=== PATIENT | female | born 1965 | race Caucasian/White ===

== ENCOUNTER 2017-05-09 06:43 | Day surgery (SDC) | payer BC, SELFPAY ==
--- NOTE | 2017-05-09 | IMM_PTH ---
PATIENT: KAYLEN MOSES LOC: [facility] [place] U#:[id number] AGE/SX: 51/F ROOM: RE05/09/[address]: Dr. Mary Singh MD : 1965 BED: DIS: 05/09/2017 SPEC #: [id number] RECD: 05/13/17 13:06 STATUS: REECE YENI #: [id number] AYUSH: 05/09/17 00:[address]: Mary Singh DEPT: IMMUNOHISTOCHEMISTRY RECD BY: Deb Chowdhury ENTERED: 05/13/17 13:06 SP TYPE: IMMUNO OTHR DR: Yaneth Reddy, BUSINESS CENTER REPRESENTATIVE-C Tissues: A - Uterine cervix, NOS Procedures: p16 (initial) KI-67 (add) PHYSICIAN & INSTITUTION [place] [address] SPECIMEN INFORMATION: Tissue Source: A ? Cervix from [facility] Clinical Info: Cervical intraepithelial neoplasia II Specimen Number: [id number] A1 CPT code: 15173, 88807 METHODOLOGY: Deparaffinized sections of prefer/formalin-fixed tissue or PAP/DQ stained slides are incubated with monoclonal/polyclonal antibodies/oligonucleotide probes. Localization is made via biotin free immunoperoxidase method. Appropriate controls are performed and reacted as expected. Results on target cell population are indicated in the following table: RESULTS: ANTIBODY / CLONE RESULT Block A1 P16 (E6H4) positive, focal block staining Ki-67 (30-9) positive These tests were developed and their performance characteristics determined by [facility]. They may not have been cleared or approved by the U.S. Food and Drug Administration. The FDA has determined that such clearance or approval is not necessary. INTERPRETATION: A. Cervix, LEEP conization: Focal mild and moderate squamous dysplasia. ARIADNA:romy 05/14/17
--- NOTE | 2017-05-09 | CER_PTH ---
PATIENT: KAYLEN MOSES LOC: [facility] [place] U#:[id number] AGE/SX: 51/F ROOM: RE05/09/[address]: Dr. Mary Singh MD : 1965 BED: DIS: 05/09/2017 SPEC #: [id number] RECD: 05/10/17 11:09 STATUS: REECE YENI #: [id number] AYUSH: 05/09/17 00:[address]: Mary Singh DEPT: SURGICAL PATHOLOGY RECD BY: Ihsan Kwong ENTERED: 05/10/17 11:11 SP TYPE: CERV OTHR DR: Yaneth Reddy, DWAYNE Tissues: A - Uterine cervix, NOS B - Endocervical Procedures: Surgery Specimen Level IV Surgery Specimen Level V HEADER OPERATION: LEEP conization PRE-OP DIAGNOSIS: Cervical intraepithelial neoplasia II TISSUE SUBMITTED: A ? Cervix from LEEP, B ? Endocervical curettings MICROSCOPIC DIAGNOSIS A. Cervix, LEEP conization: Focal mild and moderate squamous dysplasia with HPV changes (HGSIL and EVELIN I-II). Resection margins are free of dysplastic changes. See comment. B. Endocervical curettings: Scant minute fragments of ecto- and endocervical epithelium with cautery artifacts, negative for dysplasia. SJ:rg 05/13/17 COMMENT A. The specimen entirely consists of ectocervical mucosa. Immunohistochemistry (DC13-106) for surrogate HPV marker (p16) supports the above diagnosis. This case has been reviewed in consultation with Dr. Rodriguez who concurs with the above diagnosis. MICROSCOPIC DESCRIPTION Slides are reviewed. GROSS DESCRIPTION A - Received in fixative is one container labeled with the patient's name and designated cervix from [facility]. The specimen consists of two pieces of guillen, indurated tissue measuring 2 x 0.8 x 0.5 cm and 1.8 x 0.6 x 0.3 cm. No mucosal lesion is identified. The nonmucosal surface is inked black. Also present in the container are a few minute fragments of guillen-pink soft tissue. The specimen is serially sectioned and submitted entirely in four cassettes as follows: 1 & 2 ? largest piece, 3 ? smaller piece, 4 ? detached fragments of soft tissue. B - Received in fixative is one container labeled with the patient's name and designated endocervical curettings. The specimen consists of a scant fragment of guillen mucoid tissue measuring 0.5 x 0.1 x 0.1 cm. The specimen is totally submitted in one cassette. / SJ:romy 05/10/17 TC:5 CPT: 14475, 93256
--- NOTE | 2017-05-09 05:21 | HP.PCM_ITS ---
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 Comment: recommend LEEP History and Physical Date of Admission: 05/09/17 Intake Vital Signs 3 03/20/17 Height 5 ft 5 in 03/20/17 Weight: 170 lb 03/20/17 Body Mass Index (BMI) 28.3 03/20/17 Blood Pressure 138/90 Intake Visit Reasons: LEEP PROCEDURE Chief Complaint: consult Food Safety Auditor Required: No Is patient in pain?: Yes Allergies No Known Allergies Allergy (Unverified 03/20/17 09:57) Medications bupropion HCl SR 150 mg tablet,12 hr sustained-release 150 mg PO BID 03/20/17 [ History Confirmed 03/20/17] levothyroxine 100 mcg capsule PO 03/20/17 [History Confirmed 03/20/17] levothyroxine 112 mcg capsule PO 03/20/17 [History Confirmed 03/20/17] lorazepam 0.5 mg tablet 0.5 mg BUCCAL QD-BID PRN 03/20/17 [History Confirmed ] Patient : No : [facility] History EVELIN II (cervical intraepithelial neoplasia II) (Chronic) Dysplasia of cervix, high grade EVELIN 2 (Acute) Anxiety (Chronic) High blood pressure (Chronic) Hypothyroidism (Chronic) History of broken nose (Resolved) Family History Grandmother Heart disease Social History Smoking Status: Never smoker alcohol intake: current substance use type: does not use what type of physical activity do you participate in: walking frequency: daily seatbelt use: always do you feel safe at home: Yes Pregancy History 2 5 Elective abortions 1 Hx Para 2 Spontaneous abortions 2 Hx # Term Pregnancies Ectopic pregnancies Hx # Pregnancies Multiple births # of living children Past Pregnancies Del. Date Name GA/Weeks Outcome Route Bth Weight Infant Gen Labor Lgth Anesthesia Del Locatn Provider FOB Unknown 1999 Luke Unknown 1986 [facility] HPI LEEP PROCEDURE: Details: KAYLEN ELMORE is a 51 year old who presents for abnromal lgsil pap and EVELIN 2 on colposcopy from previous provider. [facility] lives [facility] here now. she hasn't had any severely abnormal paps before. she denies any irregular bleeding or symptoms. ROS Const Constitutional: Reports system reviewed and no additional complaints, except as docu GI GI: Reports system reviewed and no additional complaints, except as docu : Reports system reviewed and no additional complaints, except as docu Exam Const General: healthy appearing, comfortable, cooperative HEENT: no thyromegaly lymphadenopathy CV:: RRR Pulmonary: CTAB Abdn: soft NTTP Skin General: no rashes or lesions noted Assessment & Plan Problems 1. EVELIN II (cervical intraepithelial neoplasia II) N87.1 recommend LEEP Plan discussed hpv education and abnormalities- recommend LEEP procedure and if negative margins, repeat pap in 1 year.
[2017-05-09 07:00] VITALS: BP 138/93; PULSE 76; RESP 16; TEMP 36; O2SAT 99; BMI 28.5
--- NOTE | 2017-05-09 07:11 | PCM.OPRPT ---
Problem List 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 Comment: recommend LEEP Report of Operation Date of Procedure: 05/09/17 Pre-Operative Diagnosis: EVELIN II Post-Operative Diagnosis: Same Surgery/Procedure Performed:: LEEP Description of Surgical Findings:: Normal-appearing cervix Type of Anesthesia:: Local MAC Specimen's removed: Cervix and endocervical curettings Estimated Blood Loss (mL): Minimal Fluids Replaced: crystalloid Description of Procedure: Patient was taken to the operating room and placed under MAC anesthesia prepped and draped in normal sterile fashion the dorsal lithotomy position. Paracervical block was placed with 1% lidocaine and using a loop electrode the outer part of the cervix was removed including the squamocolumnar junction. Endocervical curettings were taken and the base of the cervix was cauterized around the borders and the base to obtain excellent hemostasis. Monsel's paste was placed and patient was awoken and taken recovery in stable condition. Grafts/Implants Used: none - Complications none - Admit VTE Documentation VTE Present on Admission: No VTE Mechan Device Prophylaxis: SCD's
[2017-05-09] MEDS: FERRIC SUBSULFATE 8 GM SOLN (08:50)
--- NOTE | 2017-05-09 08:56 | PCM.DC.LEE ---
Allergies/Adverse Reactions: Allergies No Known Allergies Allergy (Verified 05/02/17 13:18) Medications to take at Discharge levothyroxine 112 mcg capsule 112 mcg PO DAILY 03/20/17 Trazodone HCl [Desyrel] 50 mg PO QHS 05/02/17 Primary Care Physician: Yaneth Reddy [Primary Care Provider] - Please Follow Up With: Mary Singh MD - [phone]
[2017-05-09 09:00] VITALS: BP 130/90; BP 138/93; PULSE 54; RESP 16; TEMP 36.3; O2SAT 100
[2017-05-09 09:05] VITALS: BP 138/93; BP 155/97; PULSE 61; RESP 14; O2SAT 100
[2017-05-09 09:10] VITALS: BP 138/93; BP 153/94; PULSE 62; RESP 12; O2SAT 100
[2017-05-09 09:15] VITALS: BP 138/93; BP 158/86; PULSE 67; RESP 16; TEMP 36.6; O2SAT 100
[2017-05-09 10:29] VITALS: BP 138/93
== END 2017-05-09 10:31 | disposition home or self-care (01) ==
LOC: SDC 06:46 → AC 06:47
PROVIDERS: Family Provider Nurse Practitioner; PCP Nurse Practitioner; Visit Provider Obstetrics & Gynecology
PROC: 0UBC7ZZ Excision of Cervix, Via Natural or Artificial Opening (ICD-10-PCS; CPT 57522; principal; 2017-05-09 08:05)
DX: R87.613 High grade squamous intraepithelial lesion on cytologic smear of cervix (HGSIL) (principal); E03.9 Hypothyroidism, unspecified; Z79.899 Other long term (current) drug therapy
CPT/HCPCS: 00940; 57460; 58110; 88305; 88307; 88341; 88342; J7120; J2405

== ENCOUNTER → 2017-05-21 12:12 | Outpatient (CLI) | payer BC, SELFPAY ==
--- NOTE | 2017-05-21 12:15 | HPBD_ITS ---
STUDY: DUAL ENERGY X-RAY ABSORPTIOMETRY / DXA REASON FOR EXAM: Female, 51 years old. Early menopause. No loss of height. TECHNIQUE: Bone Mineral Density (BMD) measurements of lumbar spine and bilateral hips were obtained. COMPARISON: None. FINDINGS: Lumbar Spine (L1-L4): g/cm2 (1.161) / T-score (-0.2) / Z-score (0.5) Findings are suggestive of normal bone density with a low fracture risk. Left Femur Total: g/cm2 (1.139) / T-score (1.0) / Z-score (1.6) Left Femoral Neck: g/cm2 (1.100) / T-score (0.4) / Z-score (1.) Right Femur Total: g/cm2 (1.116) / T-score (0.9) / Z-score (1.4) Right Femoral Neck: g/cm2 (1.031) / T-score (-0.1) / Z-score (0.9) HPBD/Dexa Bone Density Study (HP) IMPRESSION: The patient is considered normal as outlined below according to World Matt Organization (WHO) criteria with a low fracture risk. Reference Information: The T-score is the number of standard deviations above or below the standard which is normal for young adults at their peak bone mineral density. The World Health Organization (WHO) interprets the T-scores as follows: Above -1 Normal bone density Between -1 and -2.5 Osteopenia Equal to / or below -2.5 Osteoporosis As a practical clinical guideline, osteopenia may be graded as follows: Mild -1 through -1.5 Moderate -1.6 through -2.0 Severe -2.1 through -2.4 The Z-score is the number of standard deviations above or below age-matched controls. A Z-score of less than -1.5 would be considered abnormal. References: 1. NIH Osteoporosis and Related Bone Diseases http://www.osteo.org 2. International Society for Clinical Densitometry http://www.iscd.org 3. National Osteoporosis Foundation http://www.nof.org Electronically Signed: Benny Hussein MD at 15:41 EST Tel [phone], Service support ,
== END ==
PROVIDERS: Family Provider Nurse Practitioner; PCP Nurse Practitioner; Visit Provider Nurse Practitioner
DX: Z78.0 Asymptomatic menopausal state (principal)
CPT/HCPCS: 77080

== ENCOUNTER → 2018-08-14 07:58 | Outpatient (CLI) | payer BC, SELFPAY ==
[2018-07-23 16:00] VITALS: BMI 28.5
--- NOTE | 2018-08-14 08:02 | US_ITS ---
STUDY: ABDOMINAL ULTRASOUND - RIGHT UPPER QUADRANT REASON FOR VISIT: Female, 52 years old. Elevated liver function tests. TECHNIQUE: Ultrasound evaluation of the right upper quadrant was performed with real-time and static nunez-scale imaging. TECHNICAL QUALITY: Adequate. COMPARISON: None. FINDINGS: Liver: The liver measures 13.7 cm. There is increased echogenicity consistent with fatty infiltration. The bile ducts are within normal limits. There is hepatic color flow. The direction of portal flow is hepatopetal. There is no demonstrated mass lesion. Gallbladder: Normal distended gallbladder. The gallbladder wall measures 3 mm. There is a negative sonographic 's sign. There is no pericholecystic fluid. There are no gallstones. Common Bile Duct (C.B.D.): The common bile duct measures 4 mm. Pancreas: Normal size of the head, body and tail of the pancreas. There is normal echogenicity of the pancreas. There is no demonstrated pancreatic mass or cyst. Right Kidney: Normal size of the right kidney. The right kidney measures 11.5 cm. Normal renal cortex. The right cortex measures 1.2 cm. There is no demonstrated renal mass or cyst. Probable 5 mm nonobstructing stone. There is no right hydronephrosis. US/Abdomen Limited IMPRESSION: No acute abnormality. Electronically Signed: Conrad Steve MD at 16:57 EDT , Service support ,
== END ==
PROVIDERS: Family Provider Nurse Practitioner; PCP Nurse Practitioner; Referring Provider Nurse Practitioner; Visit Provider Nurse Practitioner
DX: R74.8 Abnormal levels of other serum enzymes (principal)
CPT/HCPCS: 76705

== ENCOUNTER → 2018-08-21 08:12 | Outpatient (CLI) | payer BC, SELFPAY ==
[2018-07-23 16:00] VITALS: BMI 28.5
--- NOTE | 2018-08-21 08:14 | BI_ITS ---
MAMMOGRAPHY - BILATERAL SCREENING REASON FOR EXAM: Female, 52 years old. Routine annual screening examination. PERTINENT HISTORY: Non-contributory. TECHNIQUE: Digital bilateral breast allison (3D mammographic acquisition) in the CC and MLO projections. 2-D mediolateral oblique (MLO) and craniocaudad (CC) views of both breasts were obtained. CAD: Full Field Digital Mammography with Computer Added Detection was performed. COMPARISON: Comparison is made with prior examination dated December 18, 2016. FINDINGS: Breast Composition: There are scattered areas of fibroglandular density. There are no dominant masses or suspicious calcifications. Stable benign-appearing bilateral axillary lymph nodes. No other significant abnormalities are identified. There has been no significant change since the prior study. BI/SCREENING MAMM (CAD), BILAT IMPRESSION: Stable bilateral screening mammogram. Yearly follow-up mammogram recommended. (A) ASSESSMENT CATEGORY: BIRADS Category 2: Benign. A letter regarding these results will be sent to the patient by the facility within 30 days. Approximately 10% of breast cancers are not detected by mammography. A normal mammogram should not delay biopsy of a clinically suspicious abnormality. [id number] Electronically Signed: Benny Hussein, at 11:17 EDT , Service support ,
== END ==
PROVIDERS: Family Provider Nurse Practitioner; PCP Nurse Practitioner; Referring Provider Nurse Practitioner; Visit Provider Nurse Practitioner
DX: Z12.31 Encounter for screening mammogram for malignant neoplasm of breast (principal)
CPT/HCPCS: 77063; 77067

== ENCOUNTER 2018-09-08 19:23 | Emergency (ER) | payer BC, SELFPAY ==
[2018-07-23 16:00] VITALS: BMI 28.5
[2018-09-08 19:24] VITALS: BP 153/110; PULSE 78; RESP 17; TEMP 37.3; O2SAT 98; BMI 29.2
--- NOTE | 2018-09-08 19:50 | CT_ITS ---
STUDY: CT ABDOMEN AND PELVIS WITHOUT CONTRAST REASON FOR EXAM: Female, 53 years old. Flank pain with nausea and vomiting RADIATION DOSAGE (If Supplied By Facility): CTDIvol = ( 14.60 ) mGy, DLP = ( 729.47 ) mGycm TECHNIQUE: Transaxial images were obtained from the dome of the diaphragm to the symphysis pubis without oral contrast, and without intravenous contrast. Sagittal and coronal images were reconstructed. Individualized dose optimization techniques were used for this CT. COMPARISON: None. FINDINGS: The visualized lung bases are unremarkable. The visualized portions of the heart are within normal limits. Small hiatal hernia is present. Liver is fatty infiltrated without mass or bile duct dilatation. Normal gallbladder and extrahepatic biliary system. Normal spleen. Normal pancreas. Normal bilateral adrenal glands. Normal right kidney. Mild left hydroureteronephrosis secondary to tiny ureteral calculus at the ureterovesical junction measuring approximately 3.6 mm Normal visualized stomach. Normal small intestine. Minor diverticular changes of colon without evidence for acute diverticulitis The appendix is visualized and appears normal. Normal abdominal aorta. Normal inferior vena cava. Normal retroperitoneum. Incompletely distended thick-walled bladder of uncertain significance although may be consistent with cystitis Normal abdominal wall. Normal osseous structures. CT/Abdomen/Pelvis without Cont IMPRESSION: Mild left hydroureteronephrosis secondary to tiny distal ureteral calculus at the ureterovesical junction. Incompletely distended thick-walled bladder which may be consistent with cystitis Electronically Signed: Joce Delatorre MD at 20:53 EDT , Service support ,
[2018-09-08] MEDS: Ondansetron 4 MG/2 ML Vial IV (19:54)
[2018-09-08] MEDS: Ketorolac 30 MG/ML Syringe 15 MG IV (19:54)
[2018-09-08 20:24] VITALS: RESP 17
[2018-09-08 20:26] LABS: Bacteria 0 SEEN /hpf (None Seen)
[2018-09-08 20:31] LABS: Anion Gap 10 (5-15); BUN 12 mg/dL (7-18); BUN/Creat Ratio 11.8 RATIO (10-20); Calcium,Total 8.8 mg/dL (8.5-10.1); Chloride 104 mmol/L (98-107); Creatinine, Serum 1.02 mg/dL (0.55-1.02); EST Glomerular Filtration Rate 60 mL/min (>60); Est Glom Filt Rate - Afr Amer 73 mL/min (>60); Estimated Creatinine Clearance 54.45 ml/min; Glucose 94 mg/dL (74-106); Potassium 3.2 mmol/L (3.5-5.1); Sodium Level 141 mmol/L (136-145)
[2018-09-08 20:35] LABS: Color, Urine Yellow (Yellow); Glucose, Dipstick Normal (Normal); Ketone-Dipstick 5 mg/dl (Negative); Leukocyte Esterase-Dipstick 25 /ul (Negative); Nitrite-Dipstick Negative (Negative); Occult Blood-Urine 250 /ul (Negative); Protein-Dipstick 30 mg/dl (Negative); Specific Gravity, Urine 1.015 (1.002-1.030); Urine Bilirubin Dipstick Negative (Negative); Urine Clarity Cloudy (Clear); Urine Urobilinogen 1 mg/dl (Normal); Urine pH 6.5 (5.0 - 8.0)
[2018-09-08] MEDS: Morphine 4 MG/ML Syringe IV (20:36)
[2018-09-08 20:51] LABS: Mucous, Urine RARE /hpf (<or=2+); Squamous Epithelial Cells - UA 0-5 SEEN /hpf (5-10); White Blood Cells 0-5 SEEN /hpf (0-5)
[2018-09-08 20:52] LABS: Red Blood Cells-Urine 25-50 SEEN /hpf (0-5)
[2018-09-08] MEDS: Ketorolac 15 MG/ML Vial IV (21:07)
--- NOTE | 2018-09-08 21:19 | ED.VIS.GI ---
History of Present Illness Chief Complaint: Flank Pain Narrative: Patient presenting for evaluation secondary to flank pain. Patient reports that she had a sudden onset about an hour or so ago of left-sided flank pain that radiates down into her groin. This is sharp without any exacerbating or relieving factors. It has been associated with feelings of urinary frequency and urgency. She denies any fevers nausea vomiting diarrhea associated with it. She is never had any prior similar episodes in the past, denies any history of kidney stones. 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 Review of systems otherwise negative. Past Medical History - Allergies and Home Meds Allergies/Adverse Reactions: Allergies No Known Allergies Allergy (Verified 09/08/18 19:24) Primary Care Physician: Yaneth Reddy NP-C [Primary Care Provider] - Smoking Status: Never smoker Review of Systems All systems negative except as indicated General: Denies: Chills, Fever Gastrointestinal: Reports: - - Flank pain Genitourinary: Reports: Frequency Physical Exam Vital Signs/Narrative: Vital Signs Temp Pulse Resp BP Pulse Ox 09/08/18 20:24 17 09/08/18 19:24 99.1 F 78 17 153/110 H 98 General: - - Well-nourished well-developed female visibly in pain but not toxic or in acute distress Head: Normocephalic, Atraumatic Eyes: Perrl, EOMI ENT: Moist mucous membranes, No rhinorrhea Neck: Supple, Nontender Cardiovascular: Regular rate, Regular rhythm, No murmurs Respiratory: No distress, CTA bilaterally, Chest nontender Abdomen: Soft, Nontender, Nondistended, Normal bowel sounds, - - Minimal left-sided flank tenderness to percussion Back: CVA tenderness Extremities: Nontender, No edema, - - 2+ PT pulses bilaterally symmetric Skin: Normal color, No rash Neurological: Alert, Oriented x3, Cranial nerves II-XII grossly intact, Normal Strength, Normal Sensation Psychological: Normal affect, Normal Mood Diagnostic/Tx/Re-eval - Medical Decision Making Patient presented for evaluation secondary to flank pain. IV was established patient was given morphine Toradol and Zofran as well as fluids. Patient's metabolic panel shows very mild hypokalemia, nothing that will require replacement at this point. Patient's urinalysis shows blood no infection. CT abdomen and pelvis shows a very small stone at the patient's left UVJ with associated hydronephrosis. Patient initially had some improvement in her pain, then had reemergence of her pain was given an additional dose of Toradol. At this point I believe she is appropriate for discharge. She will be sent home with a course of Percocet for pain control, and follow-up with urology. She understands signs and symptoms worse return. ED Disposition - Plan for ED Patient: Disposition: Home or Assisted Living Diagnosis: Urolithiasis Instructions: ED Stone Renal W Colic Prescriptions: Oxycodone HCl/Acetaminophen [Percocet 5/325] 1 tab PO Q6H PRN PRN 3 Days #12 tab PRN Reason: Pain Referrals: Madelyn Olivarez MD [STAFF PHYSICIAN] - 3-5 Days
--- NOTE | 2018-09-08 21:23 | ED.DCSUM_ITS ---
History of Present Illness Chief Complaint: Flank Pain Narrative: Patient presenting for evaluation secondary to flank pain. Patient reports that she had a sudden onset about an hour or so ago of left-sided flank pain that radiates down into her groin. This is sharp without any exacerbating or relieving factors. It has been associated with feelings of urinary frequency and urgency. She denies any fevers nausea vomiting diarrhea associated with it. She is never had any prior similar episodes in the past, denies any history of kidney stones. 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 Review of systems otherwise negative. Past Medical History - Allergies and Home Meds Allergies/Adverse Reactions: Allergies No Known Allergies Allergy (Verified 09/08/18 19:24) Primary Care Physician: Yaneth Reddy NP-C [Primary Care Provider] - Smoking Status: Never smoker Review of Systems All systems negative except as indicated General: Denies: Chills, Fever Gastrointestinal: Reports: - - Flank pain Genitourinary: Reports: Frequency Physical Exam Vital Signs/Narrative: Vital Signs Temp Pulse Resp BP Pulse Ox 09/08/18 20:24 17 09/08/18 19:24 99.1 F 78 17 153/110 H 98 General: - - Well-nourished well-developed female visibly in pain but not toxic or in acute distress Head: Normocephalic, Atraumatic Eyes: Perrl, EOMI ENT: Moist mucous membranes, No rhinorrhea Neck: Supple, Nontender Cardiovascular: Regular rate, Regular rhythm, No murmurs Respiratory: No distress, CTA bilaterally, Chest nontender Abdomen: Soft, Nontender, Nondistended, Normal bowel sounds, - - Minimal left- sided flank tenderness to percussion Back: CVA tenderness Extremities: Nontender, No edema, - - 2+ PT pulses bilaterally symmetric Skin: Normal color, No rash Neurological: Alert, Oriented x3, Cranial nerves II-XII grossly intact, Normal Strength, Normal Sensation Psychological: Normal affect, Normal Mood Diagnostic/Tx/Re-eval - Medical Decision Making Patient presented for evaluation secondary to flank pain. IV was established patient was given morphine Toradol and Zofran as well as fluids. Patient's metabolic panel shows very mild hypokalemia, nothing that will require replacement at this point. Patient's urinalysis shows blood no infection. CT abdomen and pelvis shows a very small stone at the patient's left UVJ with associated hydronephrosis. Patient initially had some improvement in her pain, then had reemergence of her pain was given an additional dose of Toradol. At this point I believe she is appropriate for discharge. She will be sent home with a course of Percocet for pain control, and follow-up with urology. She understands signs and symptoms worse return. ED Disposition - Plan for ED Patient: Disposition: Home or Assisted Living Diagnosis: Urolithiasis Instructions: ED Stone Renal W Colic Prescriptions: Oxycodone HCl/Acetaminophen [Percocet 5/325] 1 tab PO Q6H PRN PRN 3 Days #12 tab PRN Reason: Pain Referrals: Madelyn Olivarez MD [STAFF PHYSICIAN] - 3-5 Days
[2018-09-08 21:29] VITALS: BP 132/71; PULSE 84; RESP 18; O2SAT 99
== END 2018-09-08 21:30 | disposition home or self-care (01) ==
PROVIDERS: Emergency Provider Emergency Medicine; Family Provider Nurse Practitioner; PCP Nurse Practitioner
DX: N13.2 Hydronephrosis with renal and ureteral calculous obstruction (principal); E87.6 Hypokalemia; Z79.899 Other long term (current) drug therapy
CPT/HCPCS: 74176; 80048; 81001; 96374; 96375; 96376; 99283; J7030; A4216; J2405

== ENCOUNTER → 2018-09-25 08:44 | Outpatient (CLI) | payer BC, SELFPAY ==
[2018-09-25 08:20] VITALS: BMI 29.2
[2018-09-25 10:22] LABS: HIV - WCH Non-Reactive (Nonreactive)
[2018-09-26 02:32] LABS: Rapid Plasmin Reagin (RPR) NONREACTIVE (NONREACTIVE)
[2018-09-27 03:06] LABS: HCV Quant. RNA PCR HCV Not Detected IU/mL (.)
[2018-09-29 11:40] LABS: HSV 2 IgG < 0.91 index (0.00-0.90)
== END ==
PROVIDERS: Family Provider Nurse Practitioner; PCP Nurse Practitioner; Referring Provider Nurse Practitioner Women's Health; Visit Provider Nurse Practitioner Women's Health
DX: Z11.3 Encounter for screening for infections with a predominantly sexual mode of transmission (principal)
CPT/HCPCS: 36415; 86592; 86695; 86696; 86703; 87522

== ENCOUNTER → 2018-09-25 13:38 | Outpatient (CLI) | payer BC, SELFPAY ==
[2018-09-25 08:20] VITALS: BMI 29.2
[2018-09-25 16:56] LABS: Chlamydia Trachomatis by PCR Negative (Negative); Neisserai gonorrhoeae by PCR Negative (Negative); Probe Check PASS; Sample Adequacy Control PASS; Specimen Processing Control PASS
[2018-10-15 17:25] LABS: HPV APTIMA, High Risk Negative (Negative)
== END ==
PROVIDERS: Family Provider Nurse Practitioner; PCP Nurse Practitioner; Referring Provider Nurse Practitioner Women's Health; Visit Provider Nurse Practitioner Women's Health
DX: N87.1 Moderate cervical dysplasia (principal); Z11.3 Encounter for screening for infections with a predominantly sexual mode of transmission
CPT/HCPCS: 87491; 87591; 87624; 88175; G0145

== ENCOUNTER → 2018-09-29 12:31 | Outpatient (CLI) | payer BC, SELFPAY ==
[2018-09-08 19:24] VITALS: BMI 29.2
[2018-09-25 08:20] VITALS: BMI 29.2
--- NOTE | 2018-09-29 12:33 | US_ITS ---
STUDY: RENAL ULTRASOUND - COMPLETE REASON FOR EXAM: Female, 53 years old. Stone. TECHNIQUE: Ultrasound evaluation of the kidneys was performed with real-time and static aguilar-scale imaging. COMPARISON: None. FINDINGS: RIGHT KIDNEY: Normal location of the right kidney, which is normal in size. The right kidney measures 11.0 cm. There is a normal cortex of the right kidney. The renal cortex measures 1.6 cm. There is no right renal mass or cyst. There are no right renal calculi. There is no right hydronephrosis. DISTAL RIGHT URETER: There is non-visualization of the distal right ureter. There is no demonstrated right ureterovesical junction calculus. There is a visualized right ureteral jet. LEFT KIDNEY: Normal location of the left kidney, which is normal in size. The left kidney measures 11.2 cm. There is a normal cortex of the left kidney. The renal cortex measures 1.5 cm. There is no left renal mass or cyst. There are no left renal calculi. There is no left hydronephrosis. DISTAL LEFT URETER: There is non-visualization of the distal left ureter. There is no demonstrated left ureterovesical junction calculus. There is a visualized left ureteral jet. BLADDER: The distended urinary bladder has a volume of 206 ml. The empty urinary bladder has a volume of 24 ml. There is a normal wall thickness of the distended urinary bladder. There is no demonstrated mass within the urinary bladder. There are no demonstrated bladder calculi. US/Kidney and Bladder IMPRESSION: Normal ultrasound of the kidneys and urinary bladder. Electronically Signed: Min Leslie DO at 16:08 EDT Tel [phone], Service support ,
== END ==
PROVIDERS: Family Provider Nurse Practitioner; PCP Nurse Practitioner; Referring Provider Urology; Visit Provider Urology
DX: N20.0 Calculus of kidney (principal); N13.30 Unspecified hydronephrosis
CPT/HCPCS: 76770

== ENCOUNTER → 2019-06-26 14:03 | Outpatient (CLI) | payer BC, SELFPAY ==
[2018-09-25 08:20] VITALS: BMI 29.2
[2019-06-26 14:37] LABS: ALB/GLOB Ratio 1.2 RATIO (0.9-2.4); AST(SGOT) 50 U/L (15-37); Alanine Aminotransfer ALT/SGPT 73 U/L (13-56); Albumin, Serum 4.2 g/dL (3.2-5.0); Alkaline Phosphatase 122 U/L (45-117); Anion Gap 5 (5-15); BUN 15 mg/dL (7-18); BUN/Creat Ratio 21.7 RATIO (10-20); CRP, High Sensitivity Cardiac 2.34 mg/L; Calcium,Total 9.6 mg/dL (8.5-10.1); Chloride 106 mmol/L (98-107); Creatinine, Serum 0.69 mg/dL (0.55-1.02); EST Glomerular Filtration Rate 94 mL/min (>60); Est Glom Filt Rate - Afr Amer 114 mL/min (>60); Globulin 3.5 g/dL (2.2-4.2); Glucose 100 mg/dL (74-106); Potassium 4.2 mmol/L (3.5-5.1); Protein, Total 7.7 g/dL (6.4-8.2); Sodium Level 141 mmol/L (136-145)
[2019-06-26 14:58] LABS: Absolute Lymphocyte Count 1.74 X10^3/uL (0.83-4.51); Absolute Neutrophil Count 3.4 X10^3/uL (2.0-7.7); Basophil# 0.06 X10^3/uL; Eosinophil# 0.13 X10^3/uL; Eosinophils% 2.2 % (0-5); Hematocrit 41.8 % (37-47); Hemoglobin 14.3 g/dL (12.0-15.0); Lymphocyte # 1.74 X10^3/ul (4.0); Lymphocyte % 29.4 % (19-41); Mean Corp Hgb Conc 34.2 g/dL (32-36); Mean Corpuscular Hgb 31.8 pg (27.0-32.0); Mean Corpuscular Volume 93.1 fL (81-99); Mean Platelet Vol. 8.8 fl (6.2-12.0); Monocyte# 0.53 X10^3/uL; NRBC Flagged by Analyzer 0 % (0-5); Neutrophil # 3.43 X10^3/uL (2.7-7.7); Neutrophil % 58.1 % (47-70); Platelet Count 224 K/mm3 (150-450); RBC Distribution Width CV 12.1 % (11.6-14.6); RBC Distribution Width SD 41.6 fl (35.1-43.9); Red Blood Count 4.49 M/mm3 (4.2-5.4); White Blood Count 5.9 K/mm3 (4.4-11.0)
[2019-06-26 15:06] LABS: Erythrocyte Sedimentation Rate 1 mm/hr (0-30)
== END ==
PROVIDERS: PCP Nurse Practitioner; Referring Provider Nurse Practitioner; Visit Provider Nurse Practitioner
DX: K57.92 Diverticulitis of intestine, part unspecified, without perforation or abscess without bleeding (principal); R53.83 Other fatigue
CPT/HCPCS: 80053; 85025; 85652; 86141

== ENCOUNTER → 2019-06-29 10:22 | Outpatient (CLI) | payer BC, SELFPAY ==
[2018-09-25 08:20] VITALS: BMI 29.2
--- NOTE | 2019-06-29 10:26 | RAD_ITS ---
STUDY: X-RAY - ABDOMEN/PELVIS REASON FOR EXAM: Female, 53 years old. DIARRHEA X ONE WEEK TECHNIQUE: Single AP view of the abdomen / pelvis. COMPARISON: None. FINDINGS: Normal visualized lung bases. There is a moderate amount of colonic fecal material. There is a 4.2 mm rounded calcification overlying the right S1 vertebrae. This may represent a ureteral calculus. There are calcified phleboliths in the pelvis. Degenerative changes of the symphysis pubis as well as the sacroiliac joints bilaterally. RAD/Abdomen Single View IMPRESSION: Possible 4.2 mm calculus in the distal portion of the right ureter. Electronically Signed: Benny Hussein, at 10:56 EDT , Service support ,
--- NOTE | 2019-06-29 10:27 | RAD_ITS ---
STUDY: X-RAY CHEST REASON FOR EXAM: Female, 53 years old. COUGH, DIARRHEA X ONE WEEK TECHNIQUE: PA and lateral views of the chest. COMPARISON: None. FINDINGS: The lungs are clear and expanded. Scattered calcified granulomas. There is no demonstrated pleural abnormality. Normal size heart. Normal mediastinum and gaurav. Normal visualized pulmonary arteries. Normal visualized aortic arch and descending thoracic aorta. There are mild degenerative changes of the visualized thoracic spine. Normal visualized ribs, clavicles, and shoulders. There is no demonstrated abnormality of the visualized soft tissue structures of the upper abdomen. RAD/Chest PA and Lateral IMPRESSION: No acute abnormality is seen. Electronically Signed: Benny Hussein, at 10:55 EDT , Service support ,
== END ==
PROVIDERS: PCP Nurse Practitioner; Referring Provider Nurse Practitioner; Visit Provider Nurse Practitioner
DX: R10.9 Unspecified abdominal pain (principal); R50.9 Fever, unspecified
CPT/HCPCS: 71046; 74018

== ENCOUNTER 2024-05-28 19:50 | Inpatient (IN) | payer BC, SELFPAY ==
[2024-05-28 19:57] VITALS: BP 184/106; PULSE 105; RESP 18; TEMP 36.7; O2SAT 95; BMI 34.0
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
[2024-05-28 20:21] LABS: Absolute Lymphocyte Count 2.29 X10^3/uL (0.83-4.51); Absolute Neutrophil Count 2.7 X10^3/uL (2.0-7.7); Basophil# 0.06 X10^3/uL; Basophil% 1.1 % (0-1); Eosinophil# 0.05 X10^3/uL; Eosinophils% 0.9 % (0-5); Hematocrit 40.2 % (37-47); Lymphocyte # 2.29 X10^3/ul (0.83-4.51); Lymphocyte % 41.3 % (19-41); Mean Corp Hgb Conc 32.3 g/dL (32-36); Mean Corpuscular Hgb 28.1 pg (27.0-32.0); Mean Corpuscular Volume 86.8 fL (81-99); Mean Platelet Vol. 8.7 fl (6.2-12.0); Monocyte# 0.47 X10^3/uL; Monocyte% 8.5 % (0-10); NRBC Flagged by Analyzer 0 % (0-5); Neutrophil # 2.65 X10^3/uL (2.7-7.7); Neutrophil % 47.8 % (47-70); Platelet Count 111 K/mm3 (150-450); RBC Distribution Width CV 14.4 % (11.6-14.6); RBC Distribution Width SD 45.3 fl (35.1-43.9); Red Blood Count 4.63 M/mm3 (4.2-5.4); White Blood Count 5.5 K/mm3 (4.4-11.0)
[2024-05-28 20:33] LABS: International Normalized Ratio 1.6; Prothrombin Time (Protime)PT. 19.2 SECONDS (11.7-14.9)
[2024-05-28 20:34] LABS: Partial Thromboplast Time 36.8 Seconds (24.1-36.2)
[2024-05-28 20:35] LABS: Anion Gap 8 (5-15); BUN 5 mg/dL (7-18); BUN/Creat Ratio 8.1 RATIO (10-20); Calcium,Total 8.2 mg/dL (8.5-10.1); Chloride 112 mmol/L (98-107); Creatinine, Serum 0.62 mg/dL (0.55-1.02); EST Glomerular Filtration Rate 105 mL/min (>60); Est Glom Filt Rate - Afr Amer 128 mL/min (>60); Estimated Creatinine Clearance 90.78 ml/min; Glucose 130 mg/dL (74-106); Potassium 3.6 mmol/L (3.5-5.1); Sodium Level 146 mmol/L (136-145)
[2024-05-28 20:43] VITALS: BP 187/123; PULSE 83; RESP 18; O2SAT 97
[2024-05-28 20:52] VITALS: PULSE 90; RESP 25; O2SAT 97
[2024-05-28 20:56] LABS: Acetaminophen (Tylenol) Level < 2.0 ug/mL (10.0-30.0)
[2024-05-28 21:02] LABS: Amphetamine Urine NEGATIVE (<1000 ng/mL); Barbiturate Urine VISTA NEGATIVE (< 200 ng/mL); Benzodiazepine Urine VISTA NEGATIVE (< 200 ng/mL); Cocaine Urine VISTA NEGATIVE (< 300 ng/mL); Ecstacy Urine VISTA NEGATIVE (< 500 ng/mL); Methadone Urine VISTA NEGATIVE (< 300 ng/mL); PCP Urine VISTA NEGATIVE (< 25 ng/mL); THC Urine VISTA POSITIVE (< 50 ng/mL); Vista UDS pH Range 5
--- NOTE | 2024-05-28 21:07 | EKG12_ITS ---
Test Reason : OVERDOSE Blood Pressure : */* mmHG Vent. Rate : 77 BPM Atrial Rate : 77 BPM P-R Int : 168 ms QRS Dur : 86 ms QT Int : 408 ms P-R-T Axes : -11 5 35 degrees QTcB Int : 461 ms Normal sinus rhythm Nonspecific ST abnormality Abnormal ECG Confirmed by VINNIE ULRICH ([id number]), fan mail editor MIGNON JARIVS ([id number]) on 06/01/2024 7:13:47 AM Referred By: Confirmed By: VINNIE ULRICH
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
[2024-05-28 21:49] VITALS: BP 187/123; PULSE 77; RESP 18; TEMP 36.6; O2SAT 98
[2024-05-28 21:50] LABS: AST(SGOT) 98 U/L (15-37); Alanine Aminotransfer ALT/SGPT 41 U/L (13-56); Albumin, Serum 3.5 g/dL (3.2-5.0); Alkaline Phosphatase 203 U/L (45-117); Bilirubin, Direct 1.02 mg/dL (0.00-0.30); CPK Total, Creatine Kinase 156 U/L (26-192); Globulin 4.6 g/dL (2.2-4.2); Protein, Total 8.1 g/dL (6.4-8.2)
[2024-05-28 21:56] LABS: Salicylate < 1.7 mg/dL (2.8-20.0)
[2024-05-28 22:00] VITALS: BP 160/67; PULSE 83; RESP 16; TEMP 36.4; O2SAT 99
[2024-05-28 22:04] LABS: Blood Gas Specimen Type VEN; O2 Delivery Device Not entered; SITE Not entered; VBG BASE EXCESS 2 mmol/L (-1.0-3.5); VBG Bicarbonate 27 mmol/L (22-26); VBG PO2 30 mmHg (25-40); VBG SO2 56 % (50-70); VBG TCO2 29 mmol/L (23-33); VBG pCO2 46.4 mmHg (41-51); VBG pH 7.38 (7.32-7.42)
[2024-05-28 22:11] VITALS: BMI 32.1
[2024-05-28] MEDS: 0.9% Normal Saline (1000mL) 1,000 ML 999 ML IV ×2 (22:37→23:40)
[2024-05-29] VITALS (11 sets, daily range): BP systolic 145–184; BP diastolic 63–91; PULSE 82–104; RESP 16–20; TEMP 36.2–36.9; O2SAT 96–99
[2024-05-29] MEDS: MELATONIN 3 MG TABLET PO (00:25)
[2024-05-29] MEDS: 0.9% Normal Saline (1000mL) 1,000 ML 100 ML IV (00:44)
[2024-05-29] MEDS: Levothyroxine 112 MCG Tablet PO (04:32)
[2024-05-29 06:39] LABS: Absolute Lymphocyte Count 1.21 X10^3/uL (0.83-4.51); Absolute Neutrophil Count 2.6 X10^3/uL (2.0-7.7); Basophil# 0.04 X10^3/uL; Basophil% 0.9 % (0-1); Eosinophil# 0.02 X10^3/uL; Eosinophils% 0.5 % (0-5); Hematocrit 34.3 % (37-47); Hemoglobin 11.2 g/dL (12.0-15.0); Lymphocyte # 1.21 X10^3/ul (0.83-4.51); Lymphocyte % 28.1 % (19-41); Mean Corp Hgb Conc 32.7 g/dL (32-36); Mean Corpuscular Hgb 28.5 pg (27.0-32.0); Mean Corpuscular Volume 87.3 fL (81-99); Mean Platelet Vol. 9.3 fl (6.2-12.0); Monocyte% 9.3 % (0-10); NRBC Flagged by Analyzer 0 % (0-5); Neutrophil # 2.61 X10^3/uL (2.7-7.7); Neutrophil % 60.7 % (47-70); POSITIVE COUNT YES; Platelet Count 97 K/mm3 (150-450); RBC Distribution Width CV 14.2 % (11.6-14.6); RBC Distribution Width SD 45.6 fl (35.1-43.9); Red Blood Count 3.93 M/mm3 (4.2-5.4); White Blood Count 4.3 K/mm3 (4.4-11.0)
[2024-05-29 06:52] LABS: Differential Indicated SCAN CRITERIA MET
[2024-05-29 07:30] LABS: ALB/GLOB Ratio 0.8 RATIO (0.9-2.4); AST(SGOT) 95 U/L (15-37); Alanine Aminotransfer ALT/SGPT 33 U/L (13-56); Alkaline Phosphatase 163 U/L (45-117); Anion Gap 9 (5-15); BUN 5 mg/dL (7-18); BUN/Creat Ratio 10.6 RATIO (10-20); CPK Total, Creatine Kinase 177 U/L (26-192); Calcium,Total 7.7 mg/dL (8.5-10.1); Chloride 110 mmol/L (98-107); Creatinine, Serum 0.47 mg/dL (0.55-1.02); EST Glomerular Filtration Rate 143 mL/min (>60); Est Glom Filt Rate - Afr Amer 173 mL/min (>60); Estimated Creatinine Clearance 135.95 ml/min; Glucose 110 mg/dL (74-106); Potassium 3.7 mmol/L (3.5-5.1); Sodium Level 141 mmol/L (136-145); Thyroid Stim Hormone (TSH) 0.411 uIU/mL (0.358-3.740)
[2024-05-29] MEDS: FLU VACC 2024-25(6MOS UP)/PF 45 MCG/0.5 ML SYRINGE IM (08:27)
[2024-05-29 08:31] LABS: Platelet Estimate MOD DEC (ADEQ)
--- NOTE | 2024-05-29 10:57 | CASEMGMT ---
Social Work SW met with physician who states pt is medically cleared for psychiatric assessment. Pt was assessed in ED last evening. ANNETTE spoke with MONICA Ta who will meet with pt again today and pursue placement. Alcohol level will need to be below 100 for placement. Charge nurse updated who spoke with physician. New lab to be drawn at noon. ANNETTE updated Cely who will meet with pt for continued assessment and placement. PATRIZIA London
[2024-05-29] MEDS: Phenobarbital 32.4 MG Tablet 97.2 MG PO ×3 (11:15→18:33)
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
--- NOTE | 2024-05-29 13:35 | CASEMGMT ---
Social Work SW contacted [facility] to determine if they have a female bed available. Intake was completed over the phone, patient was accepted. Admitting physician is Dr. Kong, patient will be going to [facility]. Nurse to nurse [phone]. All information faxed to [facility] intake. SW on PCU to be notified of accepting hospital and will fax pink slip. Cely Wallis, MICROFILM EQUIPMENT INSPECTOR, PLYWOOD MATCHER
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
[2024-05-29] MEDS: hydrALAZINE 20 MG/ML Vial 10 MG IV ×2 (15:32→19:42)
[2024-05-29] MEDS: 0.9% Saline Lock 10 ML Syringe IV ×3 (15:33→19:43)
[2024-05-29] MEDS: Ensure Plus High Protein 120 ML LIQUID PO (15:33)
--- NOTE | 2024-05-29 16:00 | NURSING ---
This RN is taking over care at this time.
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
[2024-05-29] MEDS: Ondansetron 4 MG/2 ML Vial IV (16:30)
--- NOTE | 2024-05-29 16:34 | CASEMGMT ---
Social Work SW met with pt and informed that [facility] has accepted. Pt is understanding. SW provided pt with information for facility transfer. Physician notified. PATRIZIA London
[2024-05-29] MEDS: Gabapentin 300 MG Capsule PO (17:19)
--- NOTE | 2024-05-29 17:34 | NURSING ---
This RN called report to BRIANDA Pisano at this time.
[2024-05-29] MEDS: Dicyclomine 10 MG Capsule 20 MG PO (18:33)
[2024-05-29] MEDS: hydrOXYzine PAM 25 MG Capsule 50 MG PO (18:33)
== END 2024-05-29 20:46 | DRG 918 ==
LOC: ED 21:08 → PCU 21:36
PROVIDERS: Admitting Provider Family Medicine; Emergency Provider Emergency Medicine; PCP Nurse Practitioner Family; Visit Provider Student in an Organized Health Care Education/Training Program
DX: T39.312A Poisoning by propionic acid derivatives, intentional self-harm, initial encounter (principal); E03.9 Hypothyroidism, unspecified; I10 Essential (primary) hypertension; F32.A Depression, unspecified; E66.9 Obesity, unspecified; F10.129 Alcohol abuse with intoxication, unspecified; Z23 Encounter for immunization; Y90.8 Blood alcohol level of 240 mg/100 ml or more; Z79.890 Hormone replacement therapy; Z98.51 Tubal ligation status; Z68.34 Body mass index [BMI] 34.0-34.9, adult
CPT/HCPCS: 36415; 80048; 80053; 80076; 80143; 80179; 80307; 82077; 82550; 82803; 84439; 84443; 85025; 85610; 85730; 90656; 93005; 97802; 99285; A4216; J2405